=== PATIENT | male | born 1975 | race African-American/Black ===

== ENCOUNTER 2018-08-03 16:23 | Emergency (ER) | payer BC ==
[~2018-08-03] VITALS: Ht 188 cm; Wt 99.8 kg
[2018-08-03 16:28] VITALS: Ht 188 cm; Wt 99.8 kg
[2018-08-03 20:02] VITALS: BP 136/101
== END 2018-08-03 20:02 | disposition home or self-care (01) ==
LOC: ED 16:23
DX: G44.209 Tension-type headache, unspecified, not intractable (principal); I10 Essential (primary) hypertension
CPT/HCPCS: J1885